=== PATIENT | female | born 1985 | race American Indian/Alaskan Native ===

== ENCOUNTER 2017-12-23 07:36 | Emergency (ER) | payer BC ==
[2017-12-23] MEDS ORDERED: ZOFRAN ONE (09:19)
[2017-12-23] MEDS ORDERED: ZOFRAN IV ONE ×2 (09:36→10:31)
[2017-12-23 10:12] LABS: Basophils % (Auto) 0.4 % (0.0-1.8); Eosinophils % (Auto) 0.1 % (0.0-4.3); Hemoglobin 12.5 gm/dl (10.1-14.3); Lymphocytes # (Auto) 0.7 K/mm3 (1.2-5.4); Lymphocytes % (Auto) 7.8 % (13.4-35.0); Mean Corpuscular HGB Conc 33 % (30-34); Mean Corpuscular Volume 75 fl (79-97); Monocytes # (Auto) 0.5 K/mm3 (0.0-0.8); Monocytes % (Auto) 5.1 % (0.0-7.3); Platelet Count 184 K/mm3 (140-440); Red Cell Distribution Width 14.8 % (13.2-15.2)
[2017-12-23 10:13] LABS: Mean Corpuscular Hemoglobin 24 pg (28-32)
[2017-12-23 10:20] LABS: Alanine Aminotransferase 22 units/L (7-56); Albumin 4.4 g/dL (3.9-5); BUN/Creatinine Ratio 19; Blood Urea Nitrogen 13 mg/dL (7-17); Calcium 9.2 mg/dL (8.4-10.2); Hemolysis Index 12; Lipase 11 units/L (13-60)
[2017-12-23] MEDS ORDERED: PEPCID IV ONE (10:31)
[2017-12-23] MEDS ORDERED: PHENERGAN PR ONE ×2 (10:37→10:46)
--- NOTE | 2017-12-23 10:38 | Emergency Department Report ---
HPI - General Chief Complaint: Nausea/Vomiting/Diarrhea Time Seen by Provider: 12/23/17 10:27 - HPI HPI: Room 19 The patient is a 32-year-old female presented with a chief complaint of nausea and vomiting. The patient acknowledges going on drinking last night stating she concerned at least 5 shots of liquor and wine. Patient states she came home at approximately 21:0005:00 this morning she awakened with intractable nausea and vomiting. Patient denies abdominal pain only nausea. Patient denies any history of fevers. Patient states she was asymptomatic prior to consuming alcohol Location: Gastrointestinal system Duration: [See above] Quality: Nausea Severity: Moderate Modifying factors: [see above] Context: [see above] Mode of transportation: [not driving] ED Past Medical Hx - Past Medical History Hx Asthma: Yes Additional medical history: bronchitis - Surgical History Past Surgical History?: No - Family History Family history: no significant - Social History Smoking Status: Current Every Day Smoker (recently quit) Substance Use Type: Alcohol (2 times a week) - Medications Home Medications: Home Medications Medication Instructions Recorded Confirmed Last Taken Type medroxyPROGESTERone ACETATE 150 mg IM [id number] 01/24/14 01/24/14 11/30/13 History [Depo-Provera (Contraception)] Cyclobenzaprine [Flexeril] 10 mg PO TID PRN #30 tablet 01/25/14 Unknown Rx HYDROcodone/ACETAMINOPHEN [[place] 1 each PO Q6HR #20 tablet 01/25/14 Unknown Rx 5/325 Tablet] Ibuprofen [Motrin] 600 mg PO Q8H PRN #60 tablet 01/25/14 Unknown Rx Nitrofurantoin [place]/M-Cryst 100 mg PO Q12HR #14 capsule 03/24/15 Unknown Rx [Macrobid] Famotidine [Pepcid] 20 mg PO BID #20 tablet 12/23/17 Unknown Rx Promethazine [Phenergan TAB] 25 mg PO Q6HR PRN #20 tab 12/23/17 Unknown Rx Promethazine [Phenergan] 25 mg VT Q6HR PRN #5 supp.rect 12/23/17 Unknown Rx traMADol [Ultram] 50 mg PO Q6HR PRN #10 tablet 12/23/17 Unknown Rx ED Review of Systems ROS: Stated complaint: N&V Other details as noted in HPI Constitutional: denies: fever Gastrointestinal: nausea, vomiting. denies: abdominal pain Physical Exam - Physical Exam Vital Signs: Vital Signs 12/23/17 12/23/17 12/23/17 07:44 08:02 08:16 Temperature 97.2 F L Pulse Rate 57 L 58 L Respiratory 28 H 14 25 H Rate Blood Pressure 90/34 98/44 O2 Sat by Pulse 95 99 Oximetry 12/23/17 12/23/17 08:30 08:46 Temperature Pulse Rate 56 L 61 Respiratory 18 20 Rate Blood Pressure 98/44 98/44 O2 Sat by Pulse 100 90 Oximetry Physical Exam: GENERAL: The patient is well-developed well-nourished female lying on stretcher appearing to be in mild discomfort. [] HEENT: Normocephalic. Atraumatic. Extraocular motions are intact. NECK: Supple. Trachea midline CHEST/LUNGS: Clear to auscultation. There is no respiratory distress noted. HEART/CARDIOVASCULAR: Regular. There is no tachycardia. There is no gallop rub or murmur. ABDOMEN: Abdomen is soft, nontender. Patient has normal bowel sounds. There is no abdominal distention. SKIN: There is no rash. There is no edema. There is no diaphoresis. NEURO: The patient is awake, alert, and oriented. The patient is cooperative. The patient has normal speech MUSCULOSKELETAL: There is no evidence of acute injury. ED Course Vital Signs 12/23/17 12/23/17 12/23/17 07:44 08:02 08:16 Temperature 97.2 F L Pulse Rate 57 L 58 L Respiratory 28 H 14 25 H Rate Blood Pressure 90/34 98/44 O2 Sat by Pulse 95 99 Oximetry 12/23/17 12/23/17 08:30 08:46 Temperature Pulse Rate 56 L 61 Respiratory 18 20 Rate Blood Pressure 98/44 98/44 O2 Sat by Pulse 100 90 Oximetry - Reevaluation(s) Reevaluation #1: 12/23/17 11:25 Patient tolerating po ED Medical Decision Making - Lab Data Result diagrams: 12/23/17 09:57 12/23/17 09:57 Laboratory Tests 12/23/17 12/23/17 12/23/17 09:57 09:57 10:25 WBC 9.2 RBC 5.10 H Hgb 12.5 Hct 38.0 MCV 75 L MCH 24 L MCHC 33 RDW 14.8 Plt Count 184 Lymph % (Auto) 7.8 L [place] % (Auto) 5.1 Eos % (Auto) 0.1 Baso % (Auto) 0.4 Lymph # 0.7 L [place] # 0.5 Eos # 0.0 Baso # 0.0 Seg Neutrophils % 86.6 H Seg Neutrophils # 8.0 H Sodium 141 Potassium 3.4 L Chloride 102.0 Carbon Dioxide 15 L Anion Gap 27 BUN 13 Creatinine 0.7 Estimated GFR > 60 BUN/Creatinine Ratio 19 Glucose 100 Calcium 9.2 Total Bilirubin 0.60 AST 31 ALT 22 Alkaline Phosphatase 47 Total Protein 7.1 Albumin 4.4 Albumin/Globulin Ratio 1.6 Lipase 11 L Urine Color Yellow Urine Turbidity Clear Urine pH 6.0 Ur Specific [place] 1.023 Urine Protein 30 mg/dl Urine Glucose (UA) Neg Urine Ketones 80 Urine Blood Neg Urine Nitrite Neg Urine Bilirubin Neg Urine Urobilinogen < 2.0 Ur Leukocyte Esterase Neg Urine WBC (Auto) 1.0 Urine RBC (Auto) 1.0 U Epithel Cells (Auto) 5.0 Urine Mucus Few Plasma/Serum Alcohol 12/23/17 10:44 WBC RBC Hgb Hct MCV MCH MCHC RDW Plt Count Lymph % (Auto) [place] % (Auto) Eos % (Auto) Baso % (Auto) Lymph # [place] # Eos # Baso # Seg Neutrophils % Seg Neutrophils # Sodium Potassium Chloride Carbon Dioxide Anion Gap BUN Creatinine Estimated GFR BUN/Creatinine Ratio Glucose Calcium Total Bilirubin AST ALT Alkaline Phosphatase Total Protein Albumin Albumin/Globulin Ratio Lipase Urine Color Urine Turbidity Urine pH Ur Specific [place] Urine Protein Urine Glucose (UA) Urine Ketones Urine Blood Urine Nitrite Urine Bilirubin Urine Urobilinogen Ur Leukocyte Esterase Urine WBC (Auto) Urine RBC (Auto) U Epithel Cells (Auto) Urine Mucus Plasma/Serum Alcohol < 0.01 - Differential Diagnosis alcohol intoxication Critical care attestation.: If time is entered above; I have spent that time in minutes in the direct care of this critically ill patient, excluding procedure time. ED Disposition Clinical Impression: Hangover, Nausea and vomiting Disposition: DC-01 TO HOME OR SELFCARE Is pt being admited?: No Does the pt Need Aspirin: No Condition: Stable Instructions: At-Risk Alcohol Use (ED), Abuse of Alcohol (ED), Acute Nausea and Vomiting (ED) Additional Instructions: Return to the emergency department immediately should you develop worsening symptoms, fever, inability to tolerate food or liquid or any other concerns. Prescriptions: Famotidine [Pepcid] 20 mg PO BID #20 tablet Promethazine [Phenergan TAB] 25 mg PO Q6HR PRN #20 tab PRN Reason: Nausea Promethazine [Phenergan] 25 mg VT Q6HR PRN #5 supp.rect PRN Reason: Vomiting traMADol [Ultram] 50 mg PO Q6HR PRN #10 tablet PRN Reason: Pain Referrals: PRIMARY CARE, [Primary Care Provider] - 3-5 Days JOSEPH GREEN MD [Staff Physician] - 3-5 Days (Dr. Green is a professor of biology. Please follow-up with him for further evaluation) Time of Disposition: 11:28 (d/c p ivf)
[2017-12-23 10:47] LABS: Bilirubin,Urine NEG (Negative); Blood,Urine NEG (Negative); Color,Urine Yellow (Yellow); Mucus,Urine FEW /HPF; Urobilinogen,Urine < 2.0 mg/dL (<2.0)
[2017-12-23] MEDS ORDERED: NACL 0.9% 1000 ML 1,000 ML IV ONE (11:10)
[2017-12-23 12:12] VITALS: BP 103/64
== END 2017-12-23 12:12 | disposition home or self-care (01) ==
LOC: ED 07:36
DX: R11.2 Nausea with vomiting, unspecified (principal); F10.129 Alcohol abuse with intoxication, unspecified; J45.909 Unspecified asthma, uncomplicated; F17.200 Nicotine dependence, unspecified, uncomplicated
CPT/HCPCS: 36415; 80053; 81001; 83690; 85025; 96361; 96374; 96375; 99284; G0480; J2405; J7030; 80320

== ENCOUNTER 2019-08-25 09:36 | Emergency (ER) | payer BC ==
[2019-08-25 09:42] VITALS: BP 121/72
--- NOTE | 2019-08-25 10:06 | Emergency Department Report ---
Chief Complaint: Dental/Oral Stated Complaint: TOOTHACHE Time Seen by Provider: 08/25/19 10:05 - HPI History of Present Illness: Mrs. Pickett is a 34 yo female who presents with left upper tooth pain for "a while" several months. Worse now with swelling. On exam diffuse dental decay without drainage or facial cellulitis. No neck swelling or trismus. MSE complete. Mrs. Pickett does not currently have a life or limb threatening condition. She has dental insurance. I have recommended contact her insurance company for providers who are in network. - Exam Vital Signs: Vital Signs 08/25/19 09:40 Temperature 98.5 F Pulse Rate 61 Respiratory 16 Rate Blood Pressure 121/72 O2 Sat by Pulse 100 Oximetry MSE screening note: Focused history and physical exam performed. Due to findings the following was ordered: ED Disposition for MSE Clinical Impression: Dental caries Disposition: MED SCREENING EXAM-LEFT Condition: Stable Referrals: [facility] [Outside] - 3-5 Days Forms: Work/School Release Form(ED)
== END 2019-08-25 11:16 | disposition left against medical advice (07) ==
LOC: ED 09:36
DX: K02.9 Dental caries, unspecified (principal)
CPT/HCPCS: 99281